=== PATIENT | male | born 1955 | race Caucasian/White ===

== ENCOUNTER 2022-04-14 09:06 | Outpatient (RCR) | payer MEDICARE, SELFPAY | END 2022-04-17 08:47 | disposition home or self-care (01) | LOC: HO.WCC 09:06 | PROVIDERS: PCP Internal Medicine; Visit Provider Physician Assistant | DX: K62.7 Radiation proctitis (principal); D63.8 Anemia in other chronic diseases classified elsewhere; E11.610 Type 2 diabetes mellitus with diabetic neuropathic arthropathy; E11.40 Type 2 diabetes mellitus with diabetic neuropathy, unspecified; C61 Malignant neoplasm of prostate; J44.9 Chronic obstructive pulmonary disease, unspecified; I10 Essential (primary) hypertension; Z92.3 Personal history of irradiation; Z87.891 Personal history of nicotine dependence; Z89.422 Acquired absence of other left toe(s) | CPT/HCPCS: 99212 ==